=== PATIENT | male | born 1935 | race Caucasian/White ===

== ENCOUNTER 2018-05-09 11:07 | Inpatient (IN) | payer MEDICARE, OTHER ==
--- NOTE | 2018-05-09 12:26 | EDM.PDOC ---
ED HPI GENERAL MEDICAL PROBLEM - General Chief Complaint: Respiratory Problem Stated Complaint: SHORTNESS OF BREATH Time Seen by Provider: 05/09/18 11:45 Source of Information: Reports: Patient, Family History Limitations: Reports: No Limitations - History of Present Illness INITIAL COMMENTS - FREE TEXT/NARRATIVE: 82-year-old male with a history of atrial fibrillation complains of increasing shortness of breath with activity over the past several weeks. His insisted he come in and get checked when he carried a TV up some stairs and he was very short of breath afterwards. He now feels much better but he does admit to increasing dyspnea with activity over the past few weeks. He has peripheral edema and some orthopnea. Denies any chest pain, does not feel palpitations. No fever or significant cough. He had a tick bite on the left leg, was seen by a physician and had a small inflammatory reaction and was given 2 doses of antibiotic. That was within the last 2 weeks. No further rashes, he has some chronic arthritis which is unchanged. His O2 saturations are now 98%, he is not short of breath when at rest and looks very healthy for 82 years old. Onset: Unknown/Unsure Severity: Mild Associated Symptoms: Reports: No Other Symptoms - Related Data Allergies Allergy/AdvReac Type Severity Reaction Status Date / Time No Known Allergies Allergy Verified 05/09/18 11:24 Home Meds: Home Meds Ascorbic Acid [Vitamin C] 1,000 mg PO DAILY 08/27/13 [History] Aspirin [Halfprin] 81 mg PO DAILY 08/27/13 [History] Glucosamine Sulf/Chondroitin A [Glucosamine-Chondroitin Cap] 1 each PO BID 08/27 [History] Finasteride 05/09/18 [History] Tamsulosin [Flomax] 05/09/18 [History] Social & Family History - Tobacco Use Smoking Status *Q: Never Smoker ED ROS GENERAL - Review of Systems Review Of Systems: See Below Constitutional: Denies: Fever, Chills, Malaise Respiratory: Reports: Shortness of Breath (Especially with activity) Cardiovascular: Denies: Chest Pain, Palpitations GI/Abdominal: Reports: Other (Admits to weight gain and increased abdominal girth) Skin: Reports: No Symptoms Neurological: Denies: Headache ED EXAM, GENERAL - Physical Exam Exam: See Below Exam Limited By: No Limitations General Appearance: Alert, Moderate Distress Eye Exam: Bilateral Eye: Normal Inspection Respiratory/Chest: No Respiratory Distress, Lungs Clear Cardiovascular: Regular Rate, Rhythm, Extra Beats. No: JVD GI/Abdominal: Non-Tender Extremities: Pedal Edema (Symmetric lower extremity edema is present) Neurological: Alert, Oriented Psychiatric: Normal Affect, Normal Mood Course - Vital Signs Last Recorded V/S: Last Vital Signs Temp 98.2 F 05/10/18 04:00 Pulse 75 05/10/18 04:00 Resp 19 05/10/18 04:00 BP 120/63 05/10/18 04:00 Pulse Ox 94 L 05/10/18 04:00 - Orders/Labs/Meds Orders: Active Orders 24 hr Category Date Time Status Chest 2V [CR] Stat Exams 05/09/18 12:11 Taken EKG 12 Lead [EK] Routine Ther 05/09/18 12:11 Stop Req Medication Orders Acetaminophen (Tylenol) 650 mg PO Q4H PRN PRN Reason: Pain (Mild 1-3)/fever Cefazolin Sodium/Dextrose 2 gm (/ Premix) 50 mls @ 100 mls/hr IV ONETIME ONE Stop: 05/10/18 07:59 Dextrose/Lactated Ringer's (Dextrose 5%-Lactated Ringers) 1,000 mls @ 100 mls/ hr IV ASDIRECTED [facility] Last Admin: 05/10/18 07:38 Dose: 100 mls/hr Magnesium Hydroxide (Milk Of Magnesia) 30 ml PO Q12H PRN PRN Reason: Constipation Ondansetron HCl (Zofran) 4 mg IV Q4H PRN PRN Reason: Nausea/Vomiting Glucosamine/Chondroitin Capsule* *Pom 0 each PO BID [facility] Last Admin: 05/09/18 21:10 Dose: Polyethylene Glycol (Miralax) 17 gm PO DAILY PRN PRN Reason: Constipation Senna/Docusate Sodium (Senna Plus) 1 tab PO BID PRN PRN Reason: Constipation Sodium Chloride (Saline Flush) 10 ml FLUSH ASDIRECTED PRN PRN Reason: Keep Vein Open Labs: Laboratory Tests 05/09/18 05/09/18 Range/Units 12:40 12:58 WBC 6.0 (4.5-11.0) K/uL RBC 4.45 (4.30-5.90) M/uL Hgb 14.0 (12.0-15.0) g/dL Hct 42.2 (40.0-54.0) % MCV 95 (80-98) fL MCH 32 H (27-31) pg MCHC 33 (32-36) % Plt Count 194 (150-400) K/uL Neut % (Auto) 63 (36-66) % Lymph % (Auto) 27 (24-44) % [place] % (Auto) 9 H (2-6) % Eos % (Auto) 1 L (2-4) % Baso % (Auto) 0 (0-1) % Sodium 139 L (140-148) mmol/L Potassium 4.5 (3.6-5.2) mmol/L Chloride 106 (100-108) mmol/L Carbon Dioxide 28 (21-32) mmol/L Anion Gap 9.5 (5.0-14.0) mmol/L BUN 19 H (7-18) mg/dL Creatinine 1.3 (0.8-1.3) mg/dL Est Cr Clr Drug Dosing 43.68 mL/min Estimated GFR (MDRD) 53 L (>60) Glucose 106 (74-106) mg/dL Calcium 8.5 (8.5-10.1) mg/dL Total Bilirubin 0.9 (0.2-1.0) mg/dL AST 36 (15-37) U/L ALT 59 (12-78) U/L Alkaline Phosphatase 69 (46-116) U/L Troponin I < 0.017 (0.000-0.056) ng/mL Total Protein 6.8 (6.4-8.2) g/dL Albumin 3.4 (3.4-5.0) g/dL Globulin 3.4 (2.3-3.5) g/dL Albumin/Globulin Ratio 1.0 L (1.2-2.2) Meds: Medications Generic Name Dose Route Start Last Admin Trade Name Freq PRN Reason Stop Dose Admin Acetaminophen 650 mg 05/09/18 15:25 Tylenol PO Q4H PRN Pain (Mild 1-3)/fever Cefazolin Sodium/Dextrose 2 gm 50 mls @ 100 mls/hr 05/10/18 07:30 / Premix IV 05/10/18 07:59 ONETIME ONE Dextrose/Lactated Ringer's 1,000 mls @ 100 mls/hr 05/10/18 07:15 05/10/18 07: 38 Dextrose 5%-Lactated Ringers IV 100 mls/hr ASDIRECTED [facility] Administration Magnesium Hydroxide 30 ml 05/09/18 15:25 Milk Of Magnesia PO Q12H PRN Constipation Ondansetron HCl 4 mg 05/09/18 15:25 Zofran IV Q4H PRN Nausea/Vomiting Glucosamine/ 0 each 05/09/18 21:00 05/09/18 21:10 Chondroitin Capsule* PO Not Given *Pom BID [facility] Polyethylene Glycol 17 gm 05/09/18 15:25 Miralax PO DAILY PRN Constipation Senna/Docusate Sodium 1 tab 05/09/18 15:25 Senna Plus PO BID PRN Constipation Sodium Chloride 10 ml 05/09/18 15:25 Saline Flush FLUSH ASDIRECTED PRN Keep Vein Open Discontinued Medications Generic Name Dose Route Start Last Admin Trade Name Freq PRN Reason Stop Dose Admin Bupivacaine HCl Confirm 05/10/18 06:36 Marcaine 0.5% Administered 05/10/18 06:37 Dose 50 ml .ROUTE .STK-MED ONE Fentanyl Confirm 05/10/18 07:11 Sublimaze Administered 05/10/18 07:12 Dose 100 mcg .ROUTE .STK-MED ONE Lactated Ringer's 1,000 mls @ 125 mls/hr 05/10/18 00:01 05/10/18 00:14 Ringers, Lactated IV 125 mls/hr ASDIRECTED [facility] Administration Lidocaine/Epinephrine Confirm 05/10/18 06:36 Xylocaine 1% With Epinephrine 1:100,000 Administered 05/10/18 06:37 Dose 50 ml .ROUTE .STK-MED ONE Meropenem Confirm 05/10/18 06:36 Merrem Administered 05/10/18 06:37 Dose 500 mg .ROUTE .STK-MED ONE Midazolam HCl Confirm 05/10/18 07:11 Versed 1 Mg/Ml Administered 05/10/18 07:12 Dose 2 mg .ROUTE .STK-MED ONE Propofol Confirm 05/10/18 07:11 Diprivan 20 Ml Administered 05/10/18 07:12 Dose 200 mg .ROUTE .STK-MED ONE Simvastatin 5 mg 05/09/18 21:00 Zocor PO BEDTIME [facility] - Re-Assessments/Exams Free Text/Narrative Re-Assessment/Exam: 05/09/18 12:26 EKG and two-view chest x-ray were obtained. 05/09/18 13:29 Two-view chest x-ray showed no failure or cardiomegaly. EKG was concerning however with very low rate atrial fibrillation. Patient got up and went to the bathroom and felt short of breath with activity. A CBC, troponin, CMP were drawn and all were reassuring. Hemoglobin and white count were normal troponin was 0, electrolytes were normal. I asked Dr. Allen of the hospitalist service to consult the patient for possible admission and consider pacemaker placement. Departure - Departure Time of Disposition: 15:04 Disposition: Admitted As Inpatient 64 Condition: Fair Clinical Impression: Atrioventricular node dysfunction, Atrial fibrillation with slow ventricular response - Discharge Information
--- NOTE | 2018-05-09 14:14 | PCM.HP ---
H&P History of Present Illness - General Date of Service: 05/09/18 Admit Problem/Dx: Admission Diagnosis/Problem Admission Diagnosis/Problem Bradycardia Source of Information: Patient, Family, Provider, RN Notes Reviewed History Limitations: Reports: No Limitations - History of Present Illness Initial Comments - Free Text/Narative: Mr. Aggarwal is an 82-year-old gentleman was admitted through the emergency department for further evaluation and management of severe symptomatic bradycardia. He reports that he is had a long-standing history of atrial fibrillation in the past has been noted to have slow heart rates. At one point in the past approximately 3-4 years ago there was discussion about permanent pacemaker placement. Over the last several weeks he is noted symptoms of increased shortness of breath with decreased exercise tolerance and fatigue. He occasionally will note symptoms of shortness of breath while at rest. He denies any symptoms of chest pain or pressure or lightheadedness. On evaluation in the emergency department he is found to be in atrial fibrillation with very slow ventricular response, heart rates in the range of 30-50. He is currently on no cardiac rate slowing medications. - Related Data Allergies/Adverse Reactions: Allergies Allergy/AdvReac Type Severity Reaction Status Date / Time No Known Allergies Allergy Verified 05/09/18 11:24 Home Medications: Home Meds Ascorbic Acid [Vitamin C] 1,000 mg PO DAILY 08/27/13 [History] Aspirin [Halfprin] 81 mg PO DAILY 08/27/13 [History] Glucosamine Sulf/Chondroitin A [Glucosamine-Chondroitin Cap] 1 each PO BID 08/27 [History] Simvastatin [Zocor] 5 mg PO BEDTIME 08/27/13 [History] Finasteride 05/09/18 [History] Tamsulosin [Flomax] 05/09/18 [History] Social & Family History - Tobacco Use Smoking Status *Q: Never Smoker H&P Review of Systems - Review of Systems: Review Of Systems: See Below General: Reports: Weakness, Diaphoresis. Denies: Fever, Chills HEENT: Reports: No Symptoms Pulmonary: Reports: Shortness of Breath. Denies: Wheezing, Pleuritic Chest Pain , Cough, Sputum, Hemoptysis Cardiovascular: Reports: Dyspnea on Exertion. Denies: Chest Pain, Palpitations , Orthopnea, PND, Edema, Lightheadedness, Syncope Gastrointestinal: Reports: No Symptoms Genitourinary: Reports: Frequency, Retention. Denies: Dysuria, Urgency, Incontinence, Hematuria, Discharge Musculoskeletal: Reports: Joint Pain Skin: Reports: No Symptoms Psychiatric: Reports: No Symptoms Neurological: Reports: No Symptoms Hematologic/Lymphatic: Reports: No Symptoms Immunologic: Reports: No Symptoms Exam - Exam Exam: See Below - Vital Signs Vital Signs: Last Vital Signs Temp 97.2 F 05/09/18 11:33 Pulse 53 L 05/09/18 11:33 Resp 14 05/09/18 11:33 BP 137/71 05/09/18 11:33 Pulse Ox 98 05/09/18 11:33 Weight: 250 lb - Exam Quality Assessment: DVT Prophylaxis General: Alert HEENT: Conjunctiva Clear, Hearing Intact, Mucosa Moist & [place], Normal Nasal Septum, Posterior Pharynx Clear, Pupils Equal Neck: Supple, Trachea Midline, +2 Carotid Pulse wo Bruit Lungs: Clear to Auscultation, Normal Respiratory Effort Cardiovascular: Regular Rate, Regular Rhythm, Normal S1, Normal S2 GI/Abdominal Exam: Soft, Non-Tender, No Organomegaly, No Distention Back Exam: Normal Inspection, Full Range of Motion Extremities: Non-Tender, No Pedal Edema Skin: Warm, Dry, Intact Neurological: Cranial Nerves Intact, Strength Equal Bilateral, Normal Speech, Normal Tone, Sensation Intact. No: Focal Deficit Neuro Extensive - Mental Status: Alert, Oriented x3, Normal Mood/Affect, Normal Cognition, Memory Intact - Patient Data Lab Results Last 24 hrs: Laboratory Results - last 24 hr 05/09/18 05/09/18 Range/Units 12:40 12:58 WBC 6.0 (4.5-11.0) K/uL RBC 4.45 (4.30-5.90) M/uL Hgb 14.0 (12.0-15.0) g/dL Hct 42.2 (40.0-54.0) % MCV 95 (80-98) fL MCH 32 H (27-31) pg MCHC 33 (32-36) % Plt Count 194 (150-400) K/uL Neut % (Auto) 63 (36-66) % Lymph % (Auto) 27 (24-44) % [place] % (Auto) 9 H (2-6) % Eos % (Auto) 1 L (2-4) % Baso % (Auto) 0 (0-1) % Sodium 139 L (140-148) mmol/L Potassium 4.5 (3.6-5.2) mmol/L Chloride 106 (100-108) mmol/L Carbon Dioxide 28 (21-32) mmol/L Anion Gap 9.5 (5.0-14.0) mmol/L BUN 19 H (7-18) mg/dL Creatinine 1.3 (0.8-1.3) mg/dL Est Cr Clr Drug Dosing 43.68 mL/min Estimated GFR (MDRD) 53 L (>60) Glucose 106 (74-106) mg/dL Calcium 8.5 (8.5-10.1) mg/dL Total Bilirubin 0.9 (0.2-1.0) mg/dL AST 36 (15-37) U/L ALT 59 (12-78) U/L Alkaline Phosphatase 69 (46-116) U/L Troponin I < 0.017 (0.000-0.056) ng/mL Total Protein 6.8 (6.4-8.2) g/dL Albumin 3.4 (3.4-5.0) g/dL Globulin 3.4 (2.3-3.5) g/dL Albumin/Globulin Ratio 1.0 L (1.2-2.2) Result Diagrams: 05/09/18 12:40 05/09/18 12:58 *Q Meaningful Use (ADM) - VTE *Q VTE Pharmacological Contraindications *Q: Patient Scheduled Surgery - VTE Risk Assess *Q Each Risk Factor Represents 1 Point: None Total Score 1 Point Risk Factors: 0 Each Risk Factor Represents 2 Points: None Total Score 2 Point Risk Factors: 0 Each Risk Factor Represents 3 Points: Age 75 Years or Greater Total Score 3 Point Risk Factors: 3 Each Risk Factor Represents 5 Points: None Total Score 5 Point Risk Factors: 0 Venous Thromboembolism Risk Factor Score *Q: 3 Problem List Initiated/Reviewed/Updated: Yes Orders Last 24hrs: Active Orders 24 hr Category Date Time Status Patient Status Manage Transfer [TRANSFER] Routine ADT 05/09/18 13:56 Ordered EKG Documentation Completion [RC] ASDIRECTED Care 05/09/18 12:11 Active Chest 2V [CR] Stat Exams 05/09/18 12:11 Taken Resuscitation Status Routine Resus Stat 05/09/18 13:58 Ordered EKG 12 Lead [EK] Routine Ther 05/09/18 12:11 Ordered Assessment/Plan Comment:: ASSESSMENT AND PLAN SYMPTOMATIC SEVERE BRADYCARDIA-secondary to atrial fibrillation with slow ventricular response and 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 He has had long -standing atrial fibrillation, currently not on anticoagulation or any rate slowing medications. Recent symptoms of shortness of breath with decreased exercise tolerance, most symptoms are occurring with exertion but he has noted some shortness of breath at rest. Evaluation in the emergency department is documented atrial fibrillation with very slow ventricular response, rates in the range of 30-50. -Admit to ICU for cardiac monitoring until pacemaker can be placed -Nothing by mouth after midnight -IV fluids after midnight for ongoing hydration -Consult Dr. 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 At the time of this admission I do not reasonably expected evaluation and management of this problem will require more than a 96 hour hospital stay. DISPOSITION-anticipate discharge to home after the hospital stay. PRIMARY CARE PROVIDER-patient receives his health care through the [facility] system
[2018-05-09] MEDS ORDERED: Polyethylene Glycol 3350 Powder 17 GM Packet PO PRN (15:25)
[2018-05-09] MEDS ORDERED: Ondansetron 4 MG/2 ML SDV IV PRN (15:25)
[2018-05-09] MEDS ORDERED: Magnesium Hydroxide 400 MG/5 ML Susp 30 ML Cup PO PRN (15:25)
[2018-05-09] MEDS ORDERED: Acetaminophen 325 MG Tab PO PRN (15:25)
[2018-05-09] MEDS ORDERED: Sodium Chloride 0.9% 10 ML Syringe FLUSH PRN (15:25)
[2018-05-09] MEDS ORDERED: Simvastatin 20 MG Tab PO SCH (21:00)
[2018-05-09] MEDS: GLUCOSAMINE PO SCH (21:10)
[2018-05-09] MEDS: CHONDROITIN PO SCH (21:10)
[2018-05-10] MEDS ORDERED: Lactated Ringers 1,000 ML IV SCH (00:01)
[2018-05-10] MEDS ORDERED: Lidocaine 1% with EPINEPHrine 1:100,000 50 ML MDV ONE (06:36)
[2018-05-10] MEDS ORDERED: Bupivacaine 0.5% 50 ML MDV ONE (06:36)
[2018-05-10] MEDS ORDERED: Meropenem 500 MG SDV ONE (06:36)
[2018-05-10] MEDS ORDERED: Propofol 200 MG/20 ML SDV ONE (07:11)
[2018-05-10] MEDS ORDERED: Midazolam 1 MG/ML 2 ML SDV ONE (07:11)
[2018-05-10] MEDS ORDERED: fentaNYL 100 MCG/2 ML SDV ONE (07:11)
[2018-05-10] MEDS ORDERED: Dextrose 5%-Lactated Ringers 1,000 ML IV SCH ×2 (07:15→11:00)
[2018-05-10] MEDS ORDERED: ceFAZolin 2 GM in Premix Bag 1 BAG IV ONE (07:30)
[2018-05-10] MEDS ORDERED: Linezolid 200 MG/100 ML Bag IRR ONE (08:50)
--- NOTE | 2018-05-10 09:34 | PCM.PN ---
- General Info Date of Service: 05/10/18 Subjective Update: Mr. Aggarwal continued to have severe bradycardia through the night, he is now status post permanent pacemaker placement and doing well during the initial postoperative period. Denies significant symptoms of chest pain or pressure. Vital signs have otherwise been stable and he has remained afebrile. - Review of Systems General: Reports: No Symptoms Pulmonary: Reports: No Symptoms Cardiovascular: Reports: No Symptoms Gastrointestinal: Reports: No Symptoms - Patient Data Vitals - Most Recent: Last Vital Signs Temp 96.6 F 05/10/18 09:15 Pulse 70 05/10/18 09:20 Resp 14 05/10/18 09:20 BP 144/84 H 05/10/18 09:20 Pulse Ox 99 05/10/18 09:20 Weight - Most Recent: 252 lb 8 oz I&O - Last 24 Hours: Intake & Output 05/09/18 05/10/18 05/10/18 22:59 06:59 14:59 Intake Total 360 680 400 Output Total 200 Balance 160 680 400 Lab Results Last 24 Hours: Laboratory Results - last 24 hr 05/09/18 05/09/18 05/10/18 Range/Units 12:40 12:58 05:00 WBC 6.0 (4.5-11.0) K/uL RBC 4.45 (4.30-5.90) M/uL Hgb 14.0 (12.0-15.0) g/dL Hct 42.2 (40.0-54.0) % MCV 95 (80-98) fL MCH 32 H (27-31) pg MCHC 33 (32-36) % Plt Count 194 (150-400) K/uL Neut % (Auto) 63 (36-66) % Lymph % (Auto) 27 (24-44) % [place] % (Auto) 9 H (2-6) % Eos % (Auto) 1 L (2-4) % Baso % (Auto) 0 (0-1) % Sodium 139 L (140-148) mmol/L Potassium 4.5 (3.6-5.2) mmol/L Chloride 106 (100-108) mmol/L Carbon Dioxide 28 (21-32) mmol/L Anion Gap 9.5 (5.0-14.0) mmol/L BUN 19 H (7-18) mg/dL Creatinine 1.3 (0.8-1.3) mg/dL Est Cr Clr Drug Dosing 43.68 mL/min Estimated GFR (MDRD) 53 L (>60) Glucose 106 (74-106) mg/dL Calcium 8.5 (8.5-10.1) mg/dL Magnesium (1.8-2.4) mg/dL Total Bilirubin 0.9 (0.2-1.0) mg/dL AST 36 (15-37) U/L ALT 59 (12-78) U/L Alkaline Phosphatase 69 (46-116) U/L Troponin I < 0.017 (0.000-0.056) ng/mL Total Protein 6.8 (6.4-8.2) g/dL Albumin 3.4 (3.4-5.0) g/dL Globulin 3.4 (2.3-3.5) g/dL Albumin/Globulin Ratio 1.0 L (1.2-2.2) TSH, Ultra Sensitive 4.370 H (0.358-3.740) uIU/mL 05/10/18 Range/Units 05:11 WBC (4.5-11.0) K/uL RBC (4.30-5.90) M/uL Hgb (12.0-15.0) g/dL Hct (40.0-54.0) % MCV (80-98) fL MCH (27-31) pg MCHC (32-36) % Plt Count (150-400) K/uL Neut % (Auto) (36-66) % Lymph % (Auto) (24-44) % [place] % (Auto) (2-6) % Eos % (Auto) (2-4) % Baso % (Auto) (0-1) % Sodium 143 (140-148) mmol/L Potassium 4.1 (3.6-5.2) mmol/L Chloride 107 (100-108) mmol/L Carbon Dioxide 28 (21-32) mmol/L Anion Gap 7.7 (5.0-14.0) mmol/L BUN 19 H (7-18) mg/dL Creatinine 1.2 (0.8-1.3) mg/dL Est Cr Clr Drug Dosing 47.31 mL/min Estimated GFR (MDRD) 58 L (>60) Glucose 100 (74-106) mg/dL Calcium 8.1 L (8.5-10.1) mg/dL Magnesium 1.9 (1.8-2.4) mg/dL Total Bilirubin (0.2-1.0) mg/dL AST (15-37) U/L ALT (12-78) U/L Alkaline Phosphatase (46-116) U/L Troponin I (0.000-0.056) ng/mL Total Protein (6.4-8.2) g/dL Albumin (3.4-5.0) g/dL Globulin (2.3-3.5) g/dL Albumin/Globulin Ratio (1.2-2.2) TSH, Ultra Sensitive (0.358-3.740) uIU/mL Med Orders - Current: Current Medications Acetaminophen (Tylenol) 650 mg PO Q4H PRN PRN Reason: Pain (Mild 1-3)/fever Finasteride (Proscar) 5 mg PO BEDTIME COUNT INCLUDES THE [facility] Dextrose/Lactated Ringer's (Dextrose 5%-Lactated Ringers) 1,000 mls @ 100 mls/ hr IV ASDIRECTED COUNT INCLUDES THE [facility] Last Admin: 05/10/18 07:38 Dose: 100 mls/hr Magnesium Hydroxide (Milk Of Magnesia) 30 ml PO Q12H PRN PRN Reason: Constipation Ondansetron HCl (Zofran) 4 mg IV Q4H PRN PRN Reason: Nausea/Vomiting Glucosamine/Chondroitin Capsule* *Pom 0 each PO BID COUNT INCLUDES THE [facility] Last Admin: 05/09/18 21:10 Dose: Not Given Polyethylene Glycol (Miralax) 17 gm PO DAILY PRN PRN Reason: Constipation Senna/Docusate Sodium (Senna Plus) 1 tab PO BID PRN PRN Reason: Constipation Sodium Chloride (Saline Flush) 10 ml FLUSH ASDIRECTED PRN PRN Reason: Keep Vein Open Tamsulosin HCl (Flomax) 0.4 mg PO BEDTIME COUNT INCLUDES THE [facility] Discontinued Medications Bupivacaine HCl (Marcaine 0.5%) Confirm Administered Dose 50 ml .ROUTE .STK-MED ONE Stop: 05/10/18 06:37 Last Admin: 05/10/18 08:45 Dose: 3 ml Fentanyl (Sublimaze) Confirm Administered Dose 100 mcg .ROUTE .STK-MED ONE Stop: 05/10/18 07:12 Lactated Ringer's (Ringers, Lactated) 1,000 mls @ 125 mls/hr IV ASDIRECTED COUNT INCLUDES THE [facility] Last Admin: 05/10/18 00:14 Dose: 125 mls/hr Cefazolin Sodium/Dextrose 2 gm (/ Premix) 50 mls @ 100 mls/hr IV ONETIME ONE Stop: 05/10/18 07:59 Last Admin: 05/10/18 08:44 Dose: 100 mls/hr Linezolid (Zyvox) Confirm Administered Dose 300 mls @ as directed .ROUTE .STK- MED ONE Stop: 05/10/18 07:48 Lidocaine/Epinephrine (Xylocaine 1% With Epinephrine 1:100,000) Confirm Administered Dose 50 ml .ROUTE .STK-MED ONE Stop: 05/10/18 06:37 Last Admin: 05/10/18 08:45 Dose: 3 ml Linezolid (Zyvox) 200 mg IRR .STK-MED ONE Stop: 05/10/18 08:51 Last Admin: 05/10/18 08:50 Dose: 200 mg Meropenem (Merrem) Confirm Administered Dose 500 mg .ROUTE .STK-MED ONE Stop: 05/10/18 06:37 Last Admin: 05/10/18 08:50 Dose: 500 mg Midazolam HCl (Versed 1 Mg/Ml) Confirm Administered Dose 2 mg .ROUTE .STK-MED ONE Stop: 05/10/18 07:12 Propofol (Diprivan 20 Ml) Confirm Administered Dose 200 mg .ROUTE .STK-MED ONE Stop: 05/10/18 07:12 Simvastatin (Zocor) 5 mg PO BEDTIME [facility] - Exam Quality Assessment: DVT Prophylaxis General: Alert, Oriented, Cooperative, No Acute Distress Lungs: Clear to Auscultation, Normal Respiratory Effort Cardiovascular: Regular Rate, Regular Rhythm, No Murmurs GI/Abdominal Exam: Soft, Non-Tender, No Organomegaly, No Distention Extremities: Non-Tender, No Pedal Edema - Problem List Review Problem List Initiated/Reviewed/Updated: Yes - My Orders Last 24 Hours: My Active Orders 05/09/18 13:58 Resuscitation Status Routine 05/09/18 15:25 Patient Status [ADT] Routine Ambulate [RC] QID Cardiac Monitoring [RC] .As Directed Height and Weight [RC] DAILY Intake and Output [RC] Q12H Notify Provider Consults [RC] ASDIRECTED Notify Provider Vital Signs [RC] ASDIRECTED Oxygen Therapy [RC] PRN Up to Chair [RC] QID VTE/DVT Education [RC] .PRN Vital Signs [RC] Q4H Consult to Physician [CONS] Routine Acetaminophen [Tylenol] 650 mg PO Q4H PRN Docusate Sodium/Sennosides [Senna Plus] 1 tab PO BID PRN Magnesium Hydroxide [Milk of Magnesia] 30 ml PO Q12H PRN Ondansetron [Zofran] 4 mg IV Q4H PRN Polyethylene Glycol 3350 [MiraLAX] 17 gm PO DAILY PRN Sodium Chloride 0.9% [Saline Flush] 10 ml FLUSH ASDIRECTED PRN Saline Lock Insert [OM.PC] Routine Sequential Compression Device [OM.PC] Per Unit Routine 05/09/18 21:00 Patient's Own Medication [Ptom] 0 each PO BID 05/10/18 21:00 Finasteride [Proscar] 5 mg PO BEDTIME Tamsulosin [Flomax] 0.4 mg PO BEDTIME 05/10/18 Breakfast Nothing per Oral After Midnight Diet [DIET] - Plan Plan:: ASSESSMENT AND PLAN SYMPTOMATIC SEVERE BRADYCARDIA-secondary to atrial fibrillation with slow ventricular response and 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 He has had long -standing atrial fibrillation, currently not on anticoagulation or any rate slowing medications. Recent symptoms of shortness of breath with decreased exercise tolerance, most symptoms are occurring with exertion but he has noted some shortness of breath at rest. Evaluation in the emergency department has documented atrial fibrillation with very slow ventricular response, rates in the range of 30-50. Ongoing slow heart rates since admission, now status post permanent pacemaker placement which appears to be functioning well in the initial postoperative period -Postop care per Dr. 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 At the time of this admission I do not reasonably expected evaluation and management of this problem will require more than a 96 hour hospital stay. DISPOSITION-anticipate discharge to home tomorrow PRIMARY CARE PROVIDER-patient receives his health care through the [facility]
[2018-05-10] MEDS ORDERED: traMADol 50 MG Tab PO PRN (11:02)
[2018-05-10] MEDS: POTASSIUM PHOSPHATES IV SCH ×3 (12:35→18:06)
[2018-05-10] MEDS: SODIUM CHLORIDE 0.9% IV SCH ×3 (12:35→18:06)
[2018-05-10] MEDS: LIDOCAINE IV SCH ×3 (12:35→18:06)
[2018-05-10] MEDS: GLUCOSAMINE PO SCH ×2 (12:50→21:53)
[2018-05-10] MEDS: CHONDROITIN PO SCH ×2 (12:50→21:53)
[2018-05-10] MEDS ORDERED: fentaNYL/Normal Saline 600 MCG/30 ML PCA Vial IV PRN (15:56)
[2018-05-10] MEDS ORDERED: Naloxone 0.4 MG/ML SDV IVPUSH PRN (15:56)
[2018-05-10] MEDS: ceFAZolin 2 GM in Premix Bag 1 BAG IV SCH (16:50)
[2018-05-10] MEDS ORDERED: Finasteride 5 MG Tab**POM PO SCH (21:00)
[2018-05-10] MEDS ORDERED: Tamsulosin 0.4 MG Cap.ER**POM PO SCH (21:00)
[2018-05-11] MEDS: ceFAZolin 2 GM in Premix Bag 1 BAG IV SCH ×2 (00:33→08:11)
[2018-05-11] MEDS: CHONDROITIN PO SCH (08:11)
[2018-05-11] MEDS: GLUCOSAMINE PO SCH (08:11)
--- NOTE | 2018-05-11 09:32 | CR ---
Chest 2V INDICATION: exertional dyspnea COMPARISON: 08/27/2013 FINDINGS: Two views. Heart size normal. Lungs are clear. No infiltrate or pleural effusion. No sig ns of pulmonary edema.
[2018-05-11 11:15] VITALS: BP 146/81
--- NOTE | 2018-05-11 14:16 | PN ---
DATE OF SERVICE: 05/11/2018 The patient is status post single-chamber pacemaker placement yesterday. No major problems were noted overnight and the patient's function appears to be normal. The incision is clean with no hematoma, and he will be discharged home later today after being cleared by Dr. Velasco. His magnesium is somewhat low this morning. We will supplement that over the next month with some oral magnesium. Otherwise, he does not require any additional medication for pain and he will be taking Tylenol and Aleve as needed. We will see the patient back in [facility] on 05/20/2018 with restrictions on his shoulder use and use of the chainsaw and such were reviewed with the patient. Osbaldo Faust MD Job #: [id number]
--- NOTE | 2018-05-18 09:32 | OR ---
DATE OF PROCEDURE: 05/10/2018 PREOPERATIVE DIAGNOSIS: Symptomatic bradycardia with underlying chronic atrial fibrillation. POSTOPERATIVE DIAGNOSIS: Symptomatic bradycardia with underlying chronic atrial fibrillation. PROCEDURE PERFORMED: Insertion of a single-chamber transvenous cardiac pacemaker (49309). ANESTHESIA: Local plus IV sedation. INDICATIONS FOR PROCEDURE: This is an 82-year-old presenting with some shortness breath and general weakness. Upon initial evaluation, was noted to have marked bradycardia. He has long-standing atrial fibrillation, which was felt unlikely to be converted at any point. Heart rate is running typically around 30 beats per minute and he is to undergo a single- chamber pacemaker insertion. Potential risks of the procedure were reviewed with the patient and wishes to proceed. DETAILS OF PROCEDURE: The patient was brought to the operating room and placed in a supine position. The upper chest and neck areas were then prepped and draped and the patient received ongoing IV sedation. The left subclavian area was then anesthetized with 1% lidocaine mixed with Marcaine and left subclavian vein cannulated. Guidewire was passed and manipulated into the superior vena cava. Some additional local was then injected and transverse infraclavicular incision was made and carried down through the skin and subcutaneous tissue and pectoralis major fascia. The pacemaker pocket was then bluntly constructed behind the pectoralis major fascia. At this point, the introducer and peel-away catheter were then placed. Over this, a Medtronic lead, model number 5076-58 was placed. This was a screw-in type of lead and was compatible with MRI. The second location tested in the apex of the right atrium was then used for the final location. The stimulation thresholds at that location had a voltage of 0.6, impedance of 687 ohms and R-wave sensing of 4.4 mV. There is no diaphragmatic pacing with 10 volt stimulation. At this point, lead was secured in position with a 3-0 Vicryl stitch. The Medtronic pulse generator, model #[id number] was then placed. This was noted to have immediate and adequate pacing and sensing functions. The patient would appear to be essentially pacemaker dependent, so the rate was set to 70 for a lower rate. The redundant lead and pulse generator were then placed in the pocket which was then irrigated with saline solution as it had throughout the procedure. The incision was closed with two layers of 3-0 Vicryl stitch deep, and a 4-0 Vicryl subcuticular stitch. Dressing was applied. The patient was taken to the recovery room in satisfactory condition. There were no evident complications. Osbaldo Faust MD /[id number]
== END 2018-05-11 12:20 | disposition home or self-care (01) | DRG 244 ==
LOC: JP.ED 11:07 → JP.ICU 13:56 → JP.MS 05-10 19:15
PROVIDERS: ADMIT Hospitalist; ATTEND Hospitalist
PROC: 0JH604Z Insertion of Pacemaker, Single Chamber into Chest Subcutaneous Tissue and Fascia, Open Approach (ICD-10-PCS; principal; 2018-05-10)
PROC: 02H63JZ Insertion of Pacemaker Lead into Right Atrium, Percutaneous Approach (ICD-10-PCS; 2018-05-10)
DX: I48.2 Chronic atrial fibrillation (principal); R06.02 Shortness of breath; R06.00 Dyspnea, unspecified; R60.0 Localized edema; R06.01 Orthopnea; R00.1 Bradycardia, unspecified; M19.90 Unspecified osteoarthritis, unspecified site; Z79.82 Long term (current) use of aspirin; Z79.899 Other long term (current) drug therapy; E83.42 Hypomagnesemia
CPT/HCPCS: 36415; 71045; 71046; 71046-26; 80048; 80053; 83735; 83880; 84100; 84443; 84484; 85025; 93005; 99285; 99285-25; A9270-GY; C1898; J0690; J2020; J2185; J2250; J2704; J3010; J3490; J7042; J7050; J7120

== ENCOUNTER 2019-12-13 12:03 | Emergency (ER) | payer MEDICARE, OTHER ==
[2019-12-13 12:32] VITALS: BP 134/84; PULSE 88
--- NOTE | 2019-12-13 13:04 | EDM.PDOC ---
ED HPI GENERAL MEDICAL PROBLEM - General Chief Complaint: Head Injury Stated Complaint: FELL ON HIS HEAD WHIILE FEEDING BIRDS Time Seen by Provider: 12/13/19 12:45 Source of Information: Reports: Patient, Family History Limitations: Reports: No Limitations - History of Present Illness INITIAL COMMENTS - FREE TEXT/NARRATIVE: 84-year-old male slipped on the ice 2 hours ago hitting the back of his head. He felt was referral while in wanted to be checked out, he now feels fine. Developing some mild neck stiffness is all. No nausea or vomiting, no visual disturbances. He is on no anticoagulants. Onset: Sudden Duration: Hour(s): (2 hours) Location: Reports: Head Associated Symptoms: Reports: Other (Mild dizziness, mild neck stiffness) - Related Data Allergies Allergy/AdvReac Type Severity Reaction Status Date / Time No Known Allergies Allergy Verified 12/13/19 12:34 Home Meds: Home Meds Ascorbic Acid [Vitamin C] 1,000 mg PO DAILY 08/27/13 [History] Aspirin [Halfprin] 81 mg PO DAILY 08/27/13 [History] Glucosamine Sulf/Chondroitin A [Glucosamine-Chondroitin Cap] 1 each PO BID 08/27 [History] Finasteride 1 tab PO BEDTIME 05/09/18 [History] Tamsulosin [Flomax] 1 tab PO BEDTIME 05/09/18 [History] Past Medical History HEENT History: Reports: Hard of Hearing Cardiovascular History: Reports: Afib, Arrhythmia Respiratory History: Reports: Sleep Apnea Musculoskeletal History: Reports: Arthritis - Past Surgical History Musculoskeletal Surgical History: Reports: Knee Replacement Other Musculoskeletal Surgeries/Procedures:: right knee Social & Family History - Caffeine Use Caffeine Use: Reports: Coffee, Soda, Tea - Recreational Drug Use Recreational Drug Use: No ED ROS GENERAL - Review of Systems Review Of Systems: See Below Constitutional: Denies: Fever, Chills HEENT: Denies: Vision Change Respiratory: Denies: Shortness of Breath GI/Abdominal: Denies: Abdominal Pain, Nausea, Vomiting Skin: Reports: Bruising, Other (Swelling on the top of his head) Psychiatric: Reports: No Symptoms ED EXAM, HEAD INJURY - Physical Exam Exam: See Below Exam Limited By: No Limitations General Appearance: Alert, No Apparent Distress Head: Other (Patient does have a hematoma on the occiput of the scalp. Mildly tender to palpation) Eyes: Bilateral Eye: EOMI, PERRL Neck: Non-Tender Respiratory: No Respiratory Distress, Lungs Clear Cardiovascular: Regular Rate, Rhythm Neurologic: No Motor/Sensory Deficits, Normal Mood/Affect, Oriented x 3, Other ( Romberg negative no pronator drift) Course - Vital Signs Last Recorded V/S: Last Vital Signs Temp 94.7 F L 12/13/19 12:38 Pulse 88 12/13/19 12:38 Resp 18 12/13/19 12:38 BP 134/84 12/13/19 12:38 Pulse Ox 97 12/13/19 12:38 - Re-Assessments/Exams Free Text/Narrative Re-Assessment/Exam: 12/13/19 13:02 Patient was reassured, he'll continue with regular activity and expect some stiffness and soreness of the neck and back over the next few days. Return if significant headache, nausea or vomiting or neurologic complaints which were discussed. Departure - Departure Time of Disposition: 13:16 Disposition: Home, Self-Care 01 Clinical Impression: Hematoma of scalp Qualifiers: Encounter type: initial encounter Qualified Code(s): S00.03XA - Contusion of scalp, initial encounter - Discharge Information Instructions: Head Injury, Adult, [id number] Referrals: Sarwat Gore MD [Primary Care Provider] - Forms: ED Department Discharge Care Plan Goals: Ice to any swollen areas will be helpful, activity as tolerated. Tylenol or ibuprofen will help with stiffness and soreness and increase activity as tolerated. Return anytime if you develop concerns such as nausea or vomiting, persistent confusion or increased pain Sepsis Event Note - Evaluation Sepsis Screening Result: No Definite Risk - Focused Exam Vital Signs: Vital Signs Temp Pulse Resp BP Pulse Ox 12/13/19 12:38 94.7 F L 88 18 134/84 97 12/13/19 12:30 94.7 F L 88 18 134/84 97 Date Exam was Performed: 12/13/19 Time Exam was Performed: 15:08
== END 2019-12-13 13:16 | disposition home or self-care (01) ==
LOC: JP.ED 12:03
DX: S00.03XA Contusion of scalp, initial encounter (principal); I48.91 Unspecified atrial fibrillation; Z79.82 Long term (current) use of aspirin; W00.0XXA Fall on same level due to ice and snow, initial encounter; Y93.89 Activity, other specified
CPT/HCPCS: 99282; 99283

== ENCOUNTER 2022-04-01 15:23 | Emergency (ER) | payer MEDICARE ==
[2022-04-01 17:51] VITALS: BP 138/76; PULSE 70
== END 2022-04-01 18:56 | disposition home or self-care (01) ==
LOC: JP.ED 15:23
DX: R42 Dizziness and giddiness (principal); Z79.899 Other long term (current) drug therapy; Z79.82 Long term (current) use of aspirin
CPT/HCPCS: 36415; 80048; 85025; 99282; 99283